=== PATIENT | male | born 1950 | race Hispanic/Latino ===

== ENCOUNTER 2018-09-07 06:59 | Inpatient (IN) | payer MEDICARE ==
--- NOTE | 2018-09-06 11:54 | Diagnostic Imaging Report ---
Chest, 2 views, 09/06/2018. History: Preop, prostate surgery. Comparison: None available. Findings: The cardiomediastinal silhouette and pulmonary vasculature are within normal limits. The lungs are clear without evidence of consolidation or pleural effusion. Degenerative changes are present in the thoracic spine. There are no acute osseous or soft tissue abnormalities. Impression: No acute cardiopulmonary abnormality. Signed by: Eduardo Jerome on 09/06/2018 11:50 AM
[2018-09-06 11:59] LABS: BASOPHILS % 0.5 % (0.0-1.0); EOSINOPHILS # (AUTO) 0.2 (0.0-0.4); EOSINOPHILS % 2.7 % (0.0-6.0); HEMATOCRIT 42.4 % (38.2-49.6); HEMOGLOBIN 13.8 g/dL (14.0-18.0); LYMPHOCYTES # (AUTO) 1.6 (1.0-3.2); MEAN CORPUSCULAR HEMOGLOBIN 29.1 pg (28-32); MEAN CORPUSCULAR HGB CONC 32.5 g/dL (31-35); MEAN CORPUSCULAR VOLUME 89.3 fL (81-99); MONOCYTES # (AUTO) 0.6 (0.2-0.8); MONOCYTES % 7.2 % (4.4-11.3); NEUTROPHILS % 70.3 % (38.7-80.0); PLATELET COUNT 276 x10e3/uL (140-360); RED BLOOD COUNT 4.75 x10e6/uL (4.3-5.7); RED CELL DISTRIBUTION WIDTH 13.2 % (11.7-14.4)
[2018-09-06 12:14] LABS: ANION GAP 15.3 mmol/L (8-16); BLOOD UREA NITROGEN 22 mg/dL (7-26); BUN/CREATININE RATIO 26 (6-25); CALCIUM 10.1 mg/dL (8.4-10.2); CARBON DIOXIDE 27 mmol/L (22-29); CHLORIDE 97 mmol/L (98-107); CREATININE, SERUM 0.85 mg/dL (0.72-1.25); EST GLOMERULAR FILTRATION RATE > 60 ML/MIN (60-); GLUCOSE 86 mg/dL (74-118); POTASSIUM 3.3 mmol/L (3.5-5.1); SODIUM 136 mmol/L (136-145)
[~2018-09-07] VITALS: Ht 165.1 cm; Wt 70.3 kg
[~2018-09-07 06:59] MED LIST: ATENOLOL PO; CIPRO500 MG PO; DIOVAN160 MG PO; FINASTERIDE5 MG PO; FLOMAX0.4 MG PO; GLIMEPIRIDE2 MG PO; LEVOTHYROXINE75 MCG PO; METFORMIN HCL500 MG PO; PLAVIX75 MG PO; ROSUVASTATIN PO
[2018-09-07] MEDS ORDERED: CEFTRIAXONE SOD 1 GM/NS 50 ML 50 ML IV ONE (07:25)
[2018-09-07] MEDS ORDERED: GENTAMICIN 80MG/NS 100 ML 200 ML IV ONE (07:25)
[2018-09-07] MEDS ORDERED: IOPAMIDOL 610MG/1ML 300 MG/ML VIAL IV ONE (07:54)
[2018-09-07] MEDS ORDERED: BELLADONNA/OPIUM 60 MG SUPP PR ONE (07:54)
--- OUTSIDE RECORDS SUMMARY | 2018-09-07 07:59 | XMS REPORT ---
Author Author [facility] Address Unknown Phone Unavailable Care Team Providers Care Catering Administrative Assistant Name Role Phone ERIC ALAS Unavailable Unavailable Problems This patient has no known problems. Allergies, Adverse Reactions, Alerts This patient has no known allergies or adverse reactions. Medications This patient has no known medications. Results Test Description Test Time Test Comments Text Results Atomic Results Result Comments CHEST 2 VIEWS 2018-09-06 11:50:00 [place] [id number] Patient Name: VINITA RAHMAN MR #: [id number] : 1950 Age/Sex: 67/M Req #: [id number] Adm Physician: Ordered by: ERIC ALAS MD Report #: [id number] Location: OR Room/Bed: Procedure: [id number] DX/CHEST 2 VIEWS Exam Date: 09/06/18 Exam Time: 1030 REPORT STATUS: Signed Chest, 2 views, 09/06/2018. History: Preop, prostate surgery. Comparison: None available. Findings: The cardiomediastinal silhouette and pulmonary vasculature are within normal limits. The lungs are clear without evidence of consolidation or pleural effusion. Degenerative changes are present in the thoracic spine. There are no acute osseous or soft tissue abnormalities. Impression: No acute cardiopulmonary abnormality. Signed by: Dominic Jerome on 09/06/2018 11:50 AM Dictated By: DOMINIC JEROME MD 115 Transcribed By: DG on 09/06/18 115 COPY TO: ERIC PERAZA MD
[2018-09-07] MEDS ORDERED: BELLADONNA/OPIUM 30 MG SUPP RC PRN (13:15)
[2018-09-07] MEDS ORDERED: ACETAMINOPHEN/CODEINE 300MG - 30MG TAB PO PRN (13:15)
[2018-09-07] MEDS ORDERED: DIPHENHYDRAMINE HCL 25 MG CAP PO PRN (13:15)
[2018-09-07] MEDS ORDERED: ONDANSETRON HCL INJ 2MG/ML 2ML 2 MG/ML VIAL IV PRN (13:15)
[2018-09-07 14:12] LABS: ANION GAP 13.4 mmol/L (8-16); BLOOD UREA NITROGEN 25 mg/dL (7-26); BUN/CREATININE RATIO 32 (6-25); CALCIUM 9.3 mg/dL (8.4-10.2); CARBON DIOXIDE 27 mmol/L (22-29); CHLORIDE 98 mmol/L (98-107); CREATININE, SERUM 0.78 mg/dL (0.72-1.25); EST GLOMERULAR FILTRATION RATE > 60 ML/MIN (60-); GLUCOSE 111 mg/dL (74-118); POTASSIUM 3.4 mmol/L (3.5-5.1); SODIUM 135 mmol/L (136-145)
--- NOTE | 2018-09-07 14:13 | NUR ---
RECEIVED REPORT FROM TAM IN PACU AWAITING FOR PT TO ARRIVE TO UNIT
[2018-09-07 14:18] LABS: BASOPHILS # (AUTO) 0.1 (0.0-0.1); BASOPHILS % 0.5 % (0.0-1.0); EOSINOPHILS # (AUTO) 0.1 (0.0-0.4); EOSINOPHILS % 0.7 % (0.0-6.0); HEMATOCRIT 40.6 % (38.2-49.6); HEMOGLOBIN 13.8 g/dL (14.0-18.0); LYMPHOCYTES # (AUTO) 1.5 (1.0-3.2); LYMPHOCYTES % 13.5 % (18.0-39.1); MEAN CORPUSCULAR HEMOGLOBIN 29.8 pg (28-32); MEAN CORPUSCULAR VOLUME 87.7 fL (81-99); MONOCYTES # (AUTO) 0.6 (0.2-0.8); MONOCYTES % 5.4 % (4.4-11.3); NEUTROPHILS # (AUTO) 8.5 (2.1-6.9); NEUTROPHILS % 79.5 % (38.7-80.0); PLATELET COUNT 253 x10e3/uL (140-360); RED BLOOD COUNT 4.63 x10e6/uL (4.3-5.7); RED CELL DISTRIBUTION WIDTH 13.4 % (11.7-14.4)
[2018-09-07] MEDS ORDERED: CEFTRIAXONE SOD 1 GM/NS 50 ML 50 ML IV SCH (14:30)
[2018-09-07 14:33] VITALS: BP 122/66
--- NOTE | 2018-09-07 14:33 | NUR ---
RECEIVED PT TO FLOOR AA0X3, MAORI SPEAKING ONLY PT IS IN NO S.S OF DISTRESS. SPEAK MINIMAL IRRITATION TO TIP OF PENIS PENILE AREA IS DRY AND INTACT, CARTAGENA INPLACE, NOW SECURED WITH TAPE CARTAGENA CONNECTED TO CBI, PINK URINE NOTED , NO CLOTS NOTED PT HAS AN IV FLUID WITH LR AT THIS TIME TO THE LEFT FA 20, SITE IS CLEAN AND DRY WILL CONTINUE TO MONITOR PT CLOSELY, SIDE RAILSX2, BED WHEELS LOCKED CALL LIGHT IS WITHIN EASY REACH, INSTRUCTED TO CALL FOR ASSISTANCE IF NEEDED
[2018-09-07] MEDS: SODIUM CHLORIDE 0.9% 1000ML 1,000 ML IV SCH (15:26)
[2018-09-07 16:00] VITALS: BP 139/60
[2018-09-07] MEDS ORDERED: DEXTROSE 50% SYRINGE 50 ML IV PRN (16:00)
[2018-09-07] MEDS: INSULIN LISPRO 100 UNIT/1 ML 3ML VIAL SQ SCH ×2 (16:30→21:00)
[2018-09-07] MEDS: PHENAZOPYRIDINE HCL 100 MG TAB PO SCH (17:01)
[2018-09-07] MEDS: DOCUSATE SODIUM 100 MG CAP PO SCH (17:01)
[2018-09-07] MEDS: METFORMIN HCL 500 MG TAB PO SCH (17:01)
[2018-09-07] MEDS ORDERED: EPHEDRINE SULFATE INJ 50 MG/10 ML SYR ONE (17:46)
[2018-09-07] MEDS ORDERED: DEXAMETHASONE SOD PHOS INJ 4 MG/ML VIAL ONE (17:46)
[2018-09-07] MEDS ORDERED: ONDANSETRON HCL INJ 2MG/ML 2ML 2 MG/ML VIAL ONE (17:46)
[2018-09-07] MEDS ORDERED: PROPOFOL IV EMULSION 10 MG/ML 20 ML VIAL ONE (17:46)
[2018-09-07] MEDS ORDERED: LIDOCAINE HCL 2% LOCAL INJ 5 ML SDV VIAL INJ ONE (17:46)
[2018-09-07] MEDS ORDERED: SEVOFLURANE INHAL SOLN 250 ML PEN BTL ONE (17:46)
[2018-09-07 20:00] VITALS: BP 105/67
[2018-09-07] MEDS ORDERED: GLIMEPIRIDE 2 MG TAB PO SCH (21:00)
[2018-09-07] MEDS: VALSARTAN 160 MG TAB PO SCH (21:00)
[2018-09-07] MEDS: CRESTOR 10MG PO SCH (21:31)
[2018-09-08] VITALS (7 sets, daily range): BP systolic 93–115; BP diastolic 54–66
[2018-09-08] MEDS: SODIUM CHLORIDE 0.9% 1000ML 1,000 ML IV SCH (01:40)
[2018-09-08] MEDS: LEVOTHYROXINE SODIUM 75 MCG TAB PO SCH (06:00)
[2018-09-08 06:09] LABS: BASOPHILS % 0.4 % (0.0-1.0); EOSINOPHILS # (AUTO) 0.2 (0.0-0.4); EOSINOPHILS % 1.7 % (0.0-6.0); HEMATOCRIT 40.1 % (38.2-49.6); HEMOGLOBIN 13.9 g/dL (14.0-18.0); LYMPHOCYTES # (AUTO) 1.7 (1.0-3.2); LYMPHOCYTES % 15.6 % (18.0-39.1); MEAN CORPUSCULAR HEMOGLOBIN 30.5 pg (28-32); MEAN CORPUSCULAR HGB CONC 34.7 g/dL (31-35); MEAN CORPUSCULAR VOLUME 87.9 fL (81-99); MONOCYTES # (AUTO) 0.8 (0.2-0.8); MONOCYTES % 7.3 % (4.4-11.3); NEUTROPHILS # (AUTO) 8.1 (2.1-6.9); NEUTROPHILS % 74.6 % (38.7-80.0); PLATELET COUNT 252 x10e3/uL (140-360); RED BLOOD COUNT 4.56 x10e6/uL (4.3-5.7); RED CELL DISTRIBUTION WIDTH 13.6 % (11.7-14.4)
[2018-09-08 06:43] LABS: ANION GAP 12.5 mmol/L (8-16); BLOOD UREA NITROGEN 19 mg/dL (7-26); BUN/CREATININE RATIO 23 (6-25); CALCIUM 8.6 mg/dL (8.4-10.2); CARBON DIOXIDE 27 mmol/L (22-29); CHLORIDE 98 mmol/L (98-107); CREATININE, SERUM 0.83 mg/dL (0.72-1.25); EST GLOMERULAR FILTRATION RATE > 60 ML/MIN (60-); GLUCOSE 107 mg/dL (74-118); POTASSIUM 3.5 mmol/L (3.5-5.1); SODIUM 134 mmol/L (136-145)
--- NOTE | 2018-09-08 07:05 | NUR ---
PT RESTING IN BED AA0X3. PT DENIES PAIN AT THIS TIME PT CONTINUES ON CBI, CARTAGENA IN PLACE, SECURED TO LEG URINE NOTED ON BAG IS PINK IN COLOR, NO CLOTS NOTED PT IS ON IV FLUIDS WITH NS AT 100. IV SITE IS CLEAN AND DRY WILL CONTINUE TO MONITOR PT CLOSELY, SIDE RAILSX2, BED WHEELS LOCKED, CALL LIGHT IS WITHIN EASY REACH, INSTRUCTED TO CALL FOR ASSISTANCE IF NEEDED
[2018-09-08] MEDS: INSULIN LISPRO 100 UNIT/1 ML 3ML VIAL SQ SCH ×4 (07:30→20:37)
[2018-09-08] MEDS: FINASTERIDE 5 MG TAB PO SCH (08:45)
[2018-09-08] MEDS: CEFTRIAXONE SOD 1 GM/NS 50 ML 50 ML IV SCH (08:45)
[2018-09-08] MEDS: METFORMIN HCL 500 MG TAB PO SCH ×2 (08:45→17:15)
[2018-09-08] MEDS: PHENAZOPYRIDINE HCL 100 MG TAB PO SCH ×3 (08:45→17:15)
[2018-09-08] MEDS: TAMSULOSIN HCL 0.4 MG CAP PO SCH (08:45)
[2018-09-08] MEDS: DOCUSATE SODIUM 100 MG CAP PO SCH ×2 (08:45→17:15)
[2018-09-08] MEDS: ATENOLOL 100 MG TAB PO SCH (08:46)
[2018-09-08] MEDS ORDERED: ATENOLOL 100 MG PO SCH (09:00)
[2018-09-08] MEDS ORDERED: ROSUVASTATIN 20 MG PO SCH (09:00)
--- NOTE | 2018-09-08 09:28 | History and Physical ---
PRIMARY CARE PHYSICIAN: Olivia Awad MD. SOLAR SALES ESTIMATOR: Sathish Bartlett MD CHIEF COMPLAINT: Status post TURP procedures, hematuria, acute blood loss, anemia secondary to gross hematuria with clot. HISTORY: A 67-year-old male, status post TURP procedure. The patient has gross hematuria. His hemoglobin and hematocrit seem to be stable at 13.9 and 40.1. The patient is otherwise stable. He does have some pain in the penile area, but otherwise stable. The patient is stable at this time. PAST MEDICAL HISTORY: Hypertension, dyslipidemia, diabetes type 2, hypothyroidism, and enlarged prostate. PAST SURGICAL HISTORY: Status post TURP. EGD, colonoscopy. SOCIAL HISTORY: The patient does not smoke or use alcohol. No recreational drugs. ALLERGIES: NO KNOWN ALLERGIES. HOME MEDICATIONS: Cipro, Plavix, finasteride, Amaryl, levothyroxine, metformin, Flomax, Diovan, atenolol, and Crestor. PHYSICAL EXAMINATION: VITAL SIGNS: Temperature is 98, blood pressure 115/66, pulse rate 55, and respirations 18. GENERAL: The patient is not in acute distress. He is awake. HEENT: Normocephalic, atraumatic. Anicteric. NECK: Supple grossly. PULMONARY: Diminished breath sounds without any wheezing. CARDIOVASCULAR: S1, S2. Regular rate and rhythm. ABDOMEN: Soft, nontender, and nondistention. EXTREMITIES: No gross cyanosis or edema. NEUROLOGIC: No gross focal deficit. The patient has Forbes catheter in place. Gross hematuria. The patient is getting continuous irrigation of the urinary bladder. IMPRESSION: 1. Status post transurethral resection of the prostate procedure. 2. Hematuria with clot postop appropriate. The patient is getting continuous irrigation. 3. Baseline hypertension. 4. Dyslipidemia. 5. Diabetes type 2. 6. Hypothyroidism. PLAN: Home medication adjustment. No Plavix or aspirin. Continue with urinary bladder irrigation. Repeated lab work. Postoperative care. MD SISSY Contreras/MODL /[id number]
[2018-09-08] MEDS ORDERED: MIDAZOLAM HCL 2 MG/2 ML VIAL ONE (18:48)
[2018-09-08] MEDS ORDERED: FENTANYL CITRATE/PF 100MCG/2 ML INJ ONE (18:48)
[2018-09-08] MEDS: VALSARTAN 160 MG TAB PO SCH (20:36)
[2018-09-08] MEDS: CRESTOR 10MG PO SCH (20:42)
[2018-09-09] VITALS: BP 112/64
[2018-09-09 04:00] VITALS: BP 113/67
[2018-09-09] MEDS: LEVOTHYROXINE SODIUM 75 MCG TAB PO SCH (05:39)
--- NOTE | 2018-09-09 07:28 | NUR ---
CARTAGENA CATHETER DC'D AT THIS TIME PER MD ORDER.
[2018-09-09] MEDS: INSULIN LISPRO 100 UNIT/1 ML 3ML VIAL SQ SCH ×3 (07:30→16:30)
[2018-09-09] MEDS ORDERED: GLIMEPIRIDE 2 MG TAB PO SCH (08:00)
[2018-09-09] MEDS: METFORMIN HCL 500 MG TAB PO SCH (08:00)
[2018-09-09] MEDS: CEFTRIAXONE SOD 1 GM/NS 50 ML 50 ML IV SCH (08:00)
[2018-09-09 08:25] VITALS: BP 132/78
[2018-09-09] MEDS: DOCUSATE SODIUM 100 MG CAP PO SCH (08:34)
[2018-09-09] MEDS: FINASTERIDE 5 MG TAB PO SCH (08:34)
[2018-09-09] MEDS: TAMSULOSIN HCL 0.4 MG CAP PO SCH (08:34)
[2018-09-09] MEDS: PHENAZOPYRIDINE HCL 100 MG TAB PO SCH ×2 (08:34→13:00)
[2018-09-09] MEDS: ATENOLOL 100 MG TAB PO SCH (08:35)
[2018-09-09 08:44] VITALS: BP 132/78
--- NOTE | 2018-09-09 08:54 | Discharge Summary ---
PRIMARY CARE PHYSICIAN: Olivia Awad MD FLIGHT ENGINEER HELICOPTER: Sathish Bartlett MD FINAL DIAGNOSES: 1. Status post transurethral resection of the prostate by Dr. Sathish Bartlett. 2. Gross hematuria, postoperative care, appropriate postop now cleared. SUMMARY: A 67-year-old male with enlarged prostate, urinary retention with recurrent urinary tract infection, came in with status post TURP procedure. The patient is admitted to Medicine Service for continued postoperative care. The patient is stable. Urine is clear. Forbes catheter discontinued. The patient will discharge home after voided and continue with clear urine. The patient is stable. Discharged home with Tylenol No. 3 as needed and Levaquin 500 mg daily for 7 days. The patient will hold off his Plavix and to resume on Wednesday next week. The patient is stable and discharged today. MD Martin ContrerasT/MODL /[id number]
[2018-09-09 09:05] LABS: BASOPHILS % 0.4 % (0.0-1.0); EOSINOPHILS # (AUTO) 0.2 (0.0-0.4); EOSINOPHILS % 1.8 % (0.0-6.0); HEMATOCRIT 41.7 % (38.2-49.6); HEMOGLOBIN 13.8 g/dL (14.0-18.0); LYMPHOCYTES # (AUTO) 1.4 (1.0-3.2); LYMPHOCYTES % 15.1 % (18.0-39.1); MEAN CORPUSCULAR HGB CONC 33.1 g/dL (31-35); MEAN CORPUSCULAR VOLUME 87.6 fL (81-99); MONOCYTES # (AUTO) 0.8 (0.2-0.8); MONOCYTES % 8.1 % (4.4-11.3); NEUTROPHILS # (AUTO) 7.1 (2.1-6.9); NEUTROPHILS % 74.3 % (38.7-80.0); PLATELET COUNT 239 x10e3/uL (140-360); RED BLOOD COUNT 4.76 x10e6/uL (4.3-5.7); RED CELL DISTRIBUTION WIDTH 13.4 % (11.7-14.4)
[2018-09-09 09:29] LABS: ANION GAP 13.1 mmol/L (8-16); BLOOD UREA NITROGEN 13 mg/dL (7-26); BUN/CREATININE RATIO 17 (6-25); CALCIUM 8.9 mg/dL (8.4-10.2); CARBON DIOXIDE 27 mmol/L (22-29); CHLORIDE 99 mmol/L (98-107); CREATININE, SERUM 0.75 mg/dL (0.72-1.25); EST GLOMERULAR FILTRATION RATE > 60 ML/MIN (60-); GLUCOSE 153 mg/dL (74-118); POTASSIUM 3.1 mmol/L (3.5-5.1); SODIUM 136 mmol/L (136-145)
[2018-09-09] MEDS ORDERED: ONDANSETRON HCL 4 MG ORAL DISINTEGRATING TAB PO PRN (09:45)
[2018-09-09 12:16] VITALS: BP 117/75
--- NOTE | 2018-09-09 12:33 | NUR ---
IMM EXPLAINED TO PT USING BORDER PATROL AGENT, SIGNED BELARUSIAN COPY OF IMM AND PLACED ON CHART COPY OF IMM PLACED IN CARE TRANSITION FOLDER
[2018-09-09] MEDS ORDERED: TYLENOL WITH C1 EACH PO (15:53)
[2018-09-09] MEDS ORDERED: LEVAQUIN500 MG PO (15:53)
[2018-09-09 16:29] VITALS: BP 114/66
--- NOTE | 2018-09-09 17:02 | NUR ---
PT DISCHARGED HOME..PT IV D/C EARLIER AND DISCHARGE INSTRUCTIONS GIVEN ALONG WITH WRITTEN DISCHARGE INSTRUCTION
== END 2018-09-09 17:02 | disposition home or self-care (01) | DRG 713 ==
LOC: OR 06:59 → PACU V 13:12 → MED/SURG 14:31
PROVIDERS: ADMIT Urology; ATTEND Urology
PROC: 0VB08ZZ Excision of Prostate, Via Natural or Artificial Opening Endoscopic (ICD-10-PCS; principal; 2018-09-07 09:00)
DX: N40.1 Benign prostatic hyperplasia with lower urinary tract symptoms (principal); D62 Acute posthemorrhagic anemia; R33.8 Other retention of urine; I10 Essential (primary) hypertension; E78.5 Hyperlipidemia, unspecified; E11.9 Type 2 diabetes mellitus without complications; E03.9 Hypothyroidism, unspecified; K21.9 Gastro-esophageal reflux disease without esophagitis; K44.9 Diaphragmatic hernia without obstruction or gangrene; I25.10 Atherosclerotic heart disease of native coronary artery without angina pectoris; Z95.5 Presence of coronary angioplasty implant and graft; R31.0 Gross hematuria; Z79.84 Long term (current) use of oral hypoglycemic drugs
CPT/HCPCS: 36415; 71046; 74420; 80048; 82948; 83735; 85025; 93005; J0696; J1100; J1580; J2001; J2250; J2405; J7030